=== PATIENT | female | born 1950 | race Caucasian/White ===

== ENCOUNTER 2020-02-02 11:37 | Outpatient (CLI) | payer MEDICARE, OTHER, SELFPAY ==
--- NOTE | 2020-02-02 11:46 | USCV_ITS ---
Lise Coyne Age: 69 Gender: F : 1950 Exam Date: 02/02/2020 12:16 Ordering Phys: Mita Hartley NP Technologist: Rian Draper Exam Location: [facility] – [place] Indication: RT LEG PAIN HISTORY: Lower extremity pain. PROCEDURES: Venous duplex imaging was performed in only the right lower extremity. The following venous structures were evaluated: common femoral vein, profunda vein, proximal portion of the greater saphenous vein, superficial femoral vein, and the popliteal vein. In addition, the posterior tibial and peroneal trunk were evaluated. On the right side, the common femoral, superficial femoral, profunda femoral, popliteal, posterior tibial, greater saphenous veins and the peroneal trunk were identified and interrogated in the standard fashion. These veins were found to be easily compressible with spontaneous blood flow. No evidence of insufficiency or thrombus noted. FINDINGS: Normal 2-D Doppler and augmentation and compressibility throughout the lower extremity venous structures. Additional imaging through the proximal calf veins also reveals no thrombus. Limited evaluation of the greater saphenous vein is patent with no thrombus.. CONCLUSIONS No evidence of right lower extremity DVT. Stefano Cardenas MD (Electronically Signed) Final Date: 02 February 2020 17:26 S
== END 2020-02-02 11:38 | disposition home or self-care (01) ==
LOC: RAD 11:43
PROVIDERS: PCP Nurse Practitioner Family; Visit Provider Nurse Practitioner Family
DX: M79.604 Pain in right leg (principal)
CPT/HCPCS: 93971

== ENCOUNTER 2021-02-08 08:29 | Outpatient (CLI) | payer MEDICARE, OTHER, SELFPAY ==
--- NOTE | 2021-02-08 09:19 | XR_ITS ---
WS: [id number] CERVICAL SPINE TECHNIQUE: 3 views of the cervical spine CLINICAL INFORMATION: NECK PAIN COMPARISON: None. FINDINGS: Straightening of the normal cervical lordosis. Mild spondylitic changes. Slight anterolisthesis C4 on C5 measuring 2 mm. This increases on flexion to 3 mm and decreases on extension to near neutral. Nor mal dens. Disc space narrowing worse at C5-C6. Normal C1-C2 articulation. Moderate facet arthropathy mid cervical spine. Sternotomy. Normal prevertebral soft tissues. XR/XR cervical spine 4-5V [id number] IMPRESSION: 1. Straightening of the normal cervical lordosis with mild spondylitic changes . 2. Mild instability at C4-5 described above. 3. Disc space narrowing worse at C5-6.
== END 2021-02-08 08:30 | disposition home or self-care (01) ==
PROVIDERS: PCP Nurse Practitioner Family; Visit Provider Nurse Practitioner Family
DX: M53.2X2 Spinal instabilities, cervical region (principal)
CPT/HCPCS: 72050

== ENCOUNTER 2022-07-23 16:30 | Observation (INO) | payer MEDICARE, SELFPAY ==
--- NOTE | 2022-07-23 16:38 | W.ED.ABDPA2 ---
HPI - Abdominal Pain General: Chief Complaint: Abdominal Pain Stated Complaint: possible hernia in stomach Time Seen by Provider: 07/23/22 16:32 History of Present Illness: Ms. Coyne is a 72-year-old lady with hypertension, history of ascending aorta repair valve replacement, and history of blood cancer remotely presenting to the emergency department for abdominal pain. She reports subacute onset approximately 3 weeks ago without known specific provoking event or factors. She endorses epigastric abdominal pain without significant radiation which has been near constant and is exacerbated by eating. She has had nausea but no vomiting. Does report some constipation however had bowel movement yesterday. Intensity symptoms is moderate to severe. Course has persisted. No other specific changes in health, exacerbating, or alleviating factors identified. Onset (ago): week(s) Pain Consistency: constant Location: Epigastric Severity: moderate Quality: aching and other Radiation: none Migration to: no migration Exacerbating factors: eating Relieving factors: nothing Associated Symptoms: Reports anorexia, constipation and nausea; Denies dysuria, hematochezia, hematemesis, melena and vomiting Review of Systems General: Reports: 10 or more systems reviewed and unremarkable except in HPI and below GI: Reports: nausea and constipation; Denies: vomiting, hematemesis, hematochezia or melena : Denies: dysuria PFSH ED PFSH: Medical History (Updated 07/26/22 @ 00:01 by [facility] Mcduffie) Cardiac chest pain Essential hypertension History of lymphoma Surgical History History of AAA (abdominal aortic aneurysm) repair Family History Father CAD (coronary artery disease) Social History Smoking and tobacco status: never smoked Alcohol intake: never Household members: spouse Physical Exam Const: COMMON NORMALS: alert GENERAL APPEARANCE: cooperative and well developed HENMT: COMMON NORMALS: normocephalic and atraumatic HEAD & SCALP: normocephalic and atraumatic Eye: COMMON NORMALS: conjunctivae normal CONJUNCTIVA: Yes conjunctivae normal SCLERA: sclerae normal Neck/C-Spine: COMMON NORMALS: supple GENERAL: Yes trachea midline Resp: COMMON NORMALS: clear to auscultation bilaterally EFFORT & INSPECTION: Yes able to speak in complete sentences AUSCULTATION: clear to auscultation bilaterally Cardio: COMMON NORMALS: regular rate and regular rhythm RATE: regular rate RHYTHM: regular rhythm GI: COMMON NORMALS: Soft to palpation PALPATION: Yes Soft to palpation, Yes Tenderness to palpation present (GI) (Epigastric), No Guarding due to palpation present (GI) and No Rigid due to palpation PERCUSSION: normal to percussion Extremity: GENERAL: Yes normal exam except as noted and No edema Neuro: COMMON NORMALS: moves all extremities SENSORIUM/ORIENTATION: Yes alert and No Orientation impaired Psych: COMMON NORMALS: mental status grossly normal and Normal thought process present THOUGHT PROCESS: Normal thought process present Course Vital Signs: Vital signs: Vital Signs Temperature 97.4 F L 07/25/22 16:00 Pulse Rate 72 07/25/22 16:00 Respiratory Rate 18 07/25/22 16:00 Blood Pressure 141/60 07/25/22 16:00 Pulse Oximetry 94 07/25/22 16:00 Oxygen Delivery Me thod 07/25/22 16:00 Oxygen Flow Rate 2 07/25/22 10:56 MDM - Abdominal Pain Medical Decision Making 72-year-old lady presenting with generalized illness including abdominal pain. Exam as above without evidence of acute surgical abdomen. EKG notable for sinus rhythm, normal intervals, normal axis, no STEMI. Labs notable for no leukocytosis, normal hemoglobin. Metabolic panel with elevated creatinine mildly and marked elevation of calcium as well as ionized calcium. Mild transaminitis present. Negative range 2-hour delta troponin. Negative urinalysis. On clarification of history with regards to laboratory studies patient denies frequent supplement use or calcium supplementation. She is on nifedipine and metoprolol, no thiazides. No history of similar. Reports lab work approximately [address] [facility] in [place]. Chest x-ray with no lobar consolidation or pneumothorax. CT with quite concerning findings including massive soft tissue masses in the abdomen/retroperitoneal region as well as multiple organ involvement. Most likely recurrence of patient's lymphoma. I discussed these results extensively with the patient. Most likely etiology of patient's symptoms is hypercalcemia secondary to malignancy. Given degree of hypercalcemia inpatient management is reasonable. I did discuss that this likely would not lead to inpatient evaluation of patient's cancer. Patient treated with analgesia, antiemetic, IV fluids. The results of ED evaluation were discussed with the patient including plan for admission due to requirement for level of care not available if discharged to prevent significant worsening/deterioration. Patient agreeable with plan. Discussed with hospitalist service who was agreeable to admit patient. Medical Records I reviewed the patient's medical records. Lab Data I reviewed the patient's lab results. 07/23/22 17:21 07/23/22 17:21 Labs/Radiology: Radiology Impressions Chest X-Ray 07/23/22 16:54 IMPRESSION: No acute findings. Abdomen/Pelvis CT 07/23/22 17:37 IMPRESSION: 1. Massive soft tissue masses centered in the left retroperitoneal region and left external iliac region with central necrosis consistent with recurrence or progression of patient's known lymphoma. Retroperitoneal/periaortic, perigastric, and colleen hepatic lymphadenopathy is also noted. 2. Several additional liver and splenic masses which are new from most recent comparison consistent with additional areas of lymphomatous involvement. 3. Mild left-sided pelvocaliectasis, without clear encasement or obstruction of the traversing left ureter, but there is displacement and abutment from the tumors. COMMENTS: Consistent with the [employer]'s Incidental Findings Committee white paper (J Am Nasreen Radiol 2018): Any incidental renal lesion less than 1 cm or classified as too small to characterize, or any incidental cystic renal lesion characterized as simple-appearing, is likely benign. No follow-up imaging is recommended for these lesions per consensus recommendations based on imaging criteria. Biopsy Ultrasound 07/25/22 00:00 IMPRESSION: Uncomplicated ultrasound-guided pelvic mass biopsy. Laboratory Results WBC 5.3 10^3/uL (4.0-10.0) 07/23/22 17:21 RBC 4.04 10^6/uL (4.1-5.3) L 07/23/22 17:21 Hgb 12.2 g/dL (11.5-15.3) 07/23/22 17: Hct 37.9 % (37.0-47.0) 07/23/22 17:21 MCV 93.8 fl (81-99) 07/23/22 17: MCH 30.2 pg (28.0-34.0) 07/23/22 17: MCHC 32.2 g/dL (30.0-36.0) 07/23/22 17:21 RDW 13.6 % (12.1-15.1) 07/23/22 17:21 Plt Count 266 10^3/cmm (130-400) 07/23/22 17:21 MPV 11.9 fL (7.4-10.4) H 07/23/22 17:21 Neut % (Auto) 65.5 % 07/23/22 17:21 Lymph % (Auto) 13.7 % 07/23/22 17:21 [place] % (Auto) 18.2 % 07/23/22 17:21 Eos % (Auto) 1.1 % 07/23/22 17:21 Baso % (Auto) 1.3 % 07/23/22 17:21 Neut # (Auto) 3.49 10^3/uL (1.8-7.7) 07/23/22 17:21 Lymph # (Auto) 0.7 10^3/uL (0.8-4.8) L 07/23/22 17:21 [place] # (Auto) 1.0 10^3/uL (0.2-0.9) H 07/23/22 17:21 Eos # (Auto) 0.1 10^3/uL (0.0-0.8) 07/23/22 17:21 Baso # (Auto) 0.1 10^3/uL (0.0-0.1) 07/23/22 17:21 Nucleated RBC % (auto) 0 % 07/23/22 17:21 Nucleated RBCs # 0.0 /100WBC 07/23/22 17:21 Sodium 138 mmol/L (136-145) 07/23/22 17:21 Potassium 3.9 mmol/L (3.5-5.1) 07/23/22 17:21 Chloride 98 mmol/L (98-107) 07/23/22 17:21 Carbon Dioxide 30 mmol/L (22-29) H 07/23/22 17:21 Anion Gap 13.9 (5-19) 07/23/22 17:21 BUN 22 mg/dL (8-23) 07/23/22 17:21 Creatinine 1.3 mg/dL (0.5-0.9) H 07/23/22 17:21 GFR Calculation Not Reportable 07/23/22 17:21 Glucose 104 mg/dL (65-115) 07/23/22 17:21 Calculated Osmolality 290 mOsm/kg (285-295) 07/23/22 17:21 Lactate 1.4 mmol/L (0.5-2.2) 07/23/22 17:30 Calcium 13.9 mg/dL (8.5-10.5) H* 07/23/22 17:21 Ionized Calcium Rosalie 1.7 mmol/L (1.1-1.4) H 07/23/22 18:12 Phosphorus 3.4 mg/dL (2.5-4.5) 07/23/22 17:21 Magnesium 2.0 mg/dL (1.7-2.3) 07/23/22 17:21 Total Bilirubin 0.6 mg/dL (0.15-1.2) 07/23/22 17:21 AST 49 U/L (0-32) H 07/23/22 17:21 ALT 26 U/L (0-33) 07/23/22 17:21 Alkaline Phosphatase 107 U/L (35-105) H 07/23/22 17:21 Troponin T Baseline 18 ng/L (0-10) H 07/23/22 17:21 Troponin T 120 Minute 17.54 ng/L (0-10) H 07/23/22 19:24 Delta Troponin T -0.46 ABS# (0-10) L 07/23/22 19:24 Total Protein 6.6 g/dL (6.6-8.7) 07/23/22 17:21 Albumin 4.2 g/dL (3.5-5.2) 07/23/22 17:21 Globulin 2.4 g/dL (1.3-4.6) 07/23/22 17:21 Lipase 48 U/L (13-60) 07/23/22 17:21 Vitamin B12 1040 pg/mL (232-1245) 07/23/22 19:24 25-OH Vitamin D Total 19 ng/mL (30-100) L 07/23/22 17:10 Procalcitonin 0.15 ng/mL (0-0.5) 07/23/22 17:10 TSH 3.17 uIU/mL (0.27-4.20) 07/23/22 19:24 PTH Intact 7.1 pg/mL (15-65) L 07/23/22 17:10 Calcium (PTH Intact) 14.1 mg/dL (8.5-10.5) H* 07/23/22 17:10 Urine Color Yellow (Yellow) 07/23/22 17:48 Urine Appearance Clear (CLEAR) 07/23/22 17:48 Urine pH 6 (5-7) 07/23/22 17:48 Ur Specific [place] 1.025 (1.005-1.030) 07/23/22 17:48 Urine Protein Neg (Negative) 07/23/22 17:48 Urine Glucose (UA) Norm (Normal) 07/23/22 17:48 Urine Ketones Negative (Negative) 07/23/22 17:48 Urine Blood Neg (Negative) 07/23/22 17:48 Urine Nitrate Negative (Negative) 07/23/22 17:48 Urine Bilirubin Neg (Negative) 07/23/22 17:48 Urine Urobilinogen Neg mg/dL (Negative) 07/23/22 17:48 Ur Leukocyte Esterase Negative (Negative) 07/23/22 17:48 Discharge Plan Discharge Patient Disposition: Admitted As Inpatient Admit Provider: Snehal Traylor Clinical Impression: JAKE (acute kidney injury), Dehydration, Hypercalcemia, Intraabdominal mass Condition: Stable Discharge Diet: As Directed Discharge Activity: Resume usual activity Coding Level of Care Code ED Dental Laboratory Technician for Octavianog Matt
[2022-07-23 16:42] VITALS: BP 147/66; PULSE 94; RESP 16; TEMP 37.2; O2SAT 93
--- NOTE | 2022-07-23 16:54 | XRR_ITS ---
PROCEDURE INFORMATION: Exam: XR Chest Exam date and time: 07/23/2022 5:23 PM Age: 72 years old Clinical indication: Other: Epigastric pain; Additional info: Epigastric/chest pain TECHNIQUE: Imaging protocol: Radiologic exam of the chest. Views: 1 view. COMPARISON: CR XR chest 1V [id number] 04/22/2017 6:50 AM FINDINGS: Lungs: No consolidation. Pleural spaces: No pleural effusion. No pneumothorax. Heart/Mediastinum: No cardiomegaly. Bones/joints: Sternotomy wires noted. Visualized osseous structures are intact. XR/XR chest 1V portable [id number] IMPRESSION: No acute findings.
--- NOTE | 2022-07-23 17:06 | ECG_ITS ---
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 Measurements Intervals [place] Rate: 77 P: 67 ND: 180 QRS: 38 QRSD: 97 T: 71 QT: 346 QTc: 392 Interpretive Statements SINUS RHYTHM Compared to ECG 12/22/2017 08:20:23 Intraventricular conduction delay no longer present Electronically Signed On 07-24-2022 1:53:57 METALSMITH APPRENTICE by Argenis Gaona M.D. [id number]
[2022-07-23] MEDS: ondansetron 2 mg/ML SDV 2 mL 4 MG IVP (17:10)
[2022-07-23 17:25] LABS: Basophils # 0.1 10^3/uL (0.0-0.1); Basophils % 1.3 %; Eosinophils # 0.1 10^3/uL (0.0-0.8); Eosinophils % 1.1 %; Hematocrit 37.9 % (37.0-47.0); Hemoglobin 12.2 g/dL (11.5-15.3); Lymphocytes # 0.7 10^3/uL (0.8-4.8); Lymphocytes % 13.7 %; Mean Corpuscular HGB Conc 32.2 g/dL (30.0-36.0); Mean Corpuscular Hemoglobin 30.2 pg (28.0-34.0); Mean Corpuscular Volume 93.8 fl (81-99); Mean Platelet Volume 11.9 fL (7.4-10.4); Monocytes % 18.2 %; Neutrophils # 3.49 10^3/uL (1.8-7.7); Neutrophils % 65.5 %; Nucleated Red Blood Cells % 0 %; Platelet Count 266 10^3/cmm (130-400); Red Blood Count 4.04 10^6/uL (4.1-5.3); Red Cell Distribution Width 13.6 % (12.1-15.1); White Blood Count 5.3 10^3/uL (4.0-10.0)
--- NOTE | 2022-07-23 17:37 | CTR_ITS ---
PROCEDURE INFORMATION: Exam: CT Abdomen And Pelvis With Contrast Exam date and time: 07/23/2022 6:35 PM Age: 72 years old Clinical indication: Abdominal pain; Prior surgery; Surgery date: 6+ months; Surgery type: Bilateral hips, taa repair, hyst; Additional info: Epigastric pain, persistent, history of lymphoma TECHNIQUE: Imaging protocol: Computed tomography of the abdomen and pelvis with contrast. Radiation optimization: All CT scans at this facility use at least one of these dose optimization techniques: automated exposure control; mA and/or kV adjustment per patient size (includes targeted exams where dose is matched to clinical indication); or iterative reconstruction. Contrast material: OMNIPAQUE 350; Contrast volume: 95 ml; Contrast route: INTRAVENOUS (IV); Other protocol: This patient has received 0 known CTs and 0 known cardiac nuclear medicine studies in the 12 months prior to the current study. COMPARISON: CT abdomen pelvis w con* [id number] 04/22/2017 10:03 AM RADIATION DOSE METRICS: Total DLP (mGy-cm): 397.43 FINDINGS: Liver: Multiple hypoattenuating masses are noted within both hepatic lobes the largest measuring 2.7 cm along the posterior/inferior right hepatic lobe. The masses are new from most recent comparison study. Gallbladder and bile ducts: Normal. No calcified stones. No ductal dilation. Pancreas: Normal. No ductal dilation. Spleen: Multiple hypoattenuating splenic masses noted measuring up to 4.2 cm in size. These are new from most recent comparison study. Adrenal glands: Normal. No mass. Kidneys and ureters: 1.7 cm exophytic cyst noted in the upper pole of the right kidney. Mild left-sided pelvocaliectasis. There is no apparent encasement or obstruction of the traversing left ureter, but there is displacement and abutment from the tumors. Stomach and bowel: Unremarkable. No obstruction. No mucosal thickening. Appendix: No evidence of appendicitis. Intraperitoneal space: Unremarkable. No free air. No significant fluid collection. Vasculature: Please see lymph nodes section. Lymph nodes: Massive lobulated soft tissue mass with central hypoattenuation noted in the area of left external iliac adenopathy on prior study. The mass now measures 7.5 x 9.1 cm. The mass encases the left external iliac artery and vein. There is also a left retroperitoneal mass also a central hypoattenuation which encompasses the left common iliac artery and abuts the distal abdominal aorta. Multiple additional irregular retroperitoneal/periaortic lymphadenopathy noted as well as perigastric and colleen hepatic lymph nodes. Urinary bladder: Unremarkable as visualized. Reproductive: Hysterectomy. Bones/joints: Generalized osseous demineralization. No acute fracture. No aggressive osseous lesions. Bilateral total hip arthroplasties noted in expected alignment. Soft tissues: Unremarkable. CT/CT abdomen pelvis w con* [id number] IMPRESSION: 1. Massive soft tissue masses centered in the left retroperitoneal region and left external iliac region with central necrosis consistent with recurrence or progression of patient's known lymphoma. Retroperitoneal/periaortic, perigastric, and colleen hepatic lymphadenopathy is also noted. 2. Several additional liver and splenic masses which are new from most recent comparison consistent with additional areas of lymphomatous involvement. 3. Mild left-sided pelvocaliectasis, without clear encasement or obstruction of the traversing left ureter, but there is displacement and abutment from the tumors. COMMENTS: Consistent with the [employer]'s Incidental Findings Committee white paper (J Am Nasreen Radiol 2018): Any incidental renal lesion less than 1 cm or classified as too small to characterize, or any incidental cystic renal lesion characterized as simple-appearing, is likely benign. No follow-up imaging is recommended for these lesions per consensus recommendations based on imaging criteria.
[2022-07-23 17:44] LABS: Troponin(5th) Baseline 18 ng/L (0-10)
[2022-07-23 17:46] LABS: Alanine Aminotransferase 26 U/L (0-33); Albumin Level 4.2 g/dL (3.5-5.2); Alkaline Phosphatase 107 U/L (35-105); Aspartate Amino Transferase 49 U/L (0-32); Blood Urea Nitrogen 22 mg/dL (8-23); Carbon Dioxide 30 mmol/L (22-29); Chloride 98 mmol/L (98-107); Globulin 2.4 g/dL (1.3-4.6); Glucose 104 mg/dL (65-115); Lipase 48 U/L (13-60); Total Bilirubin 0.6 mg/dL (0.15-1.2); Total Protein 6.6 g/dL (6.6-8.7)
[2022-07-23 17:48] LABS: Calcium 13.9 mg/dL (8.5-10.5)
[2022-07-23 18:00] VITALS: PULSE 75; RESP 14; O2SAT 95
[2022-07-23 18:01] LABS: Add Urine Microscopic? NO; Charge for UA Resulting for Rev
[2022-07-23 18:08] LABS: Lactate (Lactic Acid level) 1.4 mmol/L (0.5-2.2)
[2022-07-23 18:09] LABS: Bilirubin Urine Neg (Negative); Blood Urine Neg (Negative); Glucose Urine UA Norm (Normal); Ketones Urine Negative (Negative); Leukocyte Esterase Urine Negative (Negative); Nitrate Urine Negative (Negative); Protein Urine Neg (Negative); Specific Gravity, Urine 1.025 (1.005-1.030); Urine Appearance Clear (CLEAR); Urine Color Yellow (Yellow); Urobilinogen Urine Neg (Negative); pH Urine 6 (5-7)
[2022-07-23] MEDS: sodium chloride 0.9% 1,000 ML 999 ML IV (18:10)
[2022-07-23 18:17] LABS: Ionized Calcium 1.7 mmol/L (1.1-1.4)
[2022-07-23 18:21] LABS: Phosphorus 3.4 mg/dL (2.5-4.5)
[2022-07-23 18:22] LABS: Anion Gap 13.9 (5-19); Osmolality Calculated 290 mOsm/kg (285-295); Potassium 3.9 mmol/L (3.5-5.1); Sodium 138 mmol/L (136-145)
[2022-07-23] MEDS: iohexol 350 mg/mL 500 mL Btl (per mL) IV (18:38)
[2022-07-23 19:00] VITALS: BP 150/55; PULSE 73; RESP 16; O2SAT 96
--- NOTE | 2022-07-23 19:10 | ECG_ITS ---
[facility] Test Date: 2022-07-23 Pat Name: Lise Coyne Department: Room: Gender: Female Carpet Layer Helper: : 1950 Requested By: Renzo Kaur Order Number: [id number] Alejandro MD: Argenis Gaona M.D. Measurements Intervals [place] Rate: 74 P: 62 CT: 194 QRS: 41 QRSD: 104 T: 61 QT: 371 QTc: 412 Interpretive Statements SINUS RHYTHM Compared to ECG 07/23/2022 17:06:49 No significant changes Electronically Signed On 07-24-2022 1:58:06 MARKETING AND DEVELOPMENT COORDINATOR by Argenis Gaona M.D. [id number]
--- NOTE | 2022-07-23 19:34 | PM.HP ---
Providers/Chief Complaint Primary Care Provider: Melvi Castro NP Chief Complaint: possible hernia in stomach History of Present Illness Lise Coyne is a 72 year old female with history of lymphoma in the remote past presented with chief complaint of epigastric pain. Patient is stating that for last 2 to 3 weeks she has been experiencing mid epigastric pain especially after eating, she is trying to avoid eating too much in order to abstain from going to the bathroom frequently and recurrence of epigastric pain. She has not noticed any vomiting, diarrhea. She is endorsing constipation. No signs of confusion. No recent chest pain, shortness of breath or vomiting. No fever. Her oncologist is in [place] she considered herself sedentary. History of thoracic AAA repair. In the ER she has been diagnosed with hypercalcemia, she is wanting to follow-up with her oncologist, willing to stay for IV hydration All questions were answered at the time of my elevation, family was at the bedside She is endorsing weight loss, denies night sweats, Review of Systems Const: Reports: chills, body aches, change in appetite and malaise; Denies: fever(s) Eyes: Denies: change in vision ENMT: Denies: throat pain Card: Denies: chest pain Resp: Denies: dyspnea GI: Reports: nausea and GI cramping : Denies: flank pain Musc: Denies: neck pain Skin/Breast: Denies: rash Neuro: Denies: headache(s) Psych: Denies: anxiety Endo: Denies: polyuria Krystian/Lymph: Denies: easy bruising All/Imm: Denies: urticaria Medications/Allergies Home Medications Medication Instructions Recorded Confirmed Last Taken Type amlodipine 5 mg tablet 5 mg PO BID 07/01/19 07/01/19 Unknown History aspirin 81 mg tablet,delayed 81 mg PO DAILY 07/01/19 07/01/19 Unknown History release (Adult Aspirin Regimen) metoprolol tartrate 25 mg tablet 25 mg PO BID 07/01/19 07/01/19 Unknown History pravastatin 80 mg tablet 80 mg PO DAILY 07/01/19 07/01/19 Unknown History Allergies Allergy/AdvReac Type Severity Reaction Status Date / Time No Known Allergies Allergy Unverified 07/01/19 09:17 PFSH Acute PFSH: Medical History (Updated 07/23/22 @ 19:57 by Renzo Kaur MD) Cardiac chest pain Essential hypertension History of lymphoma Surgical History History of AAA (abdominal aortic aneurysm) repair Family History Father CAD (coronary artery disease) Social History Smoking and tobacco status: never smoked Alcohol intake: never Household members: spouse Vitals/I&O/Wt Last Vital Signs Temp 98.9 F 07/23/22 16:42 Pulse 73 07/23/22 19:00 Resp 16 07/23/22 19:00 BP 150/55 07/23/22 19:00 Pulse Ox 96 07/23/22 19:00 O2 Del Method 07/23/22 19:00 Weight last 48 hrs Weight 56.245 kg Physical Exam Narrative: Pleasant cooperative female Looks dehydrated Soft abdomen S1, S2 Currently doing well on room air Pleasant and cooperative Family at the bedside Nonfocal neuro exam Doing well on room air No audible stridor or wheezing Data 07/23/22 17:21 07/23/22 17:21 Other data: 1. Massive soft tissue masses centered in the left retroperitoneal region and left external iliac region with central necrosis consistent with recurrence or progression of patient's known lymphoma. Retroperitoneal/periaortic, perigastric, and colleen hepatic lymphadenopathy is also noted. 2. Several additional liver and splenic masses which are new from most recent comparison consistent with additional areas of lymphomatous involvement. 3. Mild left-sided pelvocaliectasis, without clear encasement or obstruction of the traversing left ureter, but there is displacement and abutment from the tumors. A&P Assessment and plan (1) Dehydration: (2) JAKE (acute kidney injury): (3) Hypercalcemia: (4) Intraabdominal mass: (5) Essential hypertension: (6) History of AAA (abdominal aortic aneurysm) repair: Plan Hypercalcemia History of lymphoma Multiple masses intra-abdominal, splenomegaly, concern related to recurrent lymphoma, patient wants to follow-up with her oncologist in [place] Hypercalcemia symptoms epigastric pain, constipation, For now I will check PTH, vitamin D, start her on IV fluids Will give her calcitonin She is experiencing epigastric pain, poor appetite, weight loss If her hypercalcemia does not improve with IV fluid hydration this most likely lymphoma related, Most likely she will be able to go home by tomorrow if calcium is better She will need outpatient oncology follow-up Will request records from Keisha Mccollum Patient was counseled along with her family members regarding signs of hypercalcemia She is not anemic JAKE related to dehydration anticipating provement with IV fluid hydration Patient is full code Regular diet DVT prophylaxis on board Attestations Medical Necessity Statement*: Anticipating discharge within 48 hours Time Spent in Patient Care: 40 Coding Level of Care Code Acute Code for Chg Fwd Diagnoses Dehydration E86.0 JAKE (acute kidney injury) N17.9 Hypercalcemia E83.52 Intraabdominal mass R19.00 Essential hypertension I10 History of AAA (abdominal aortic aneurysm) repair Z98.890
[2022-07-23 19:49] LABS: LAB Peripheral Smear Sent for Review
[2022-07-23 19:56] LABS: Troponin 5 2HR 17.54 ng/L (0-10); Troponin 5 2HR Delta -0.46 ABS# (0-10)
[2022-07-23 21:45] LABS: Parathyroid Hormone 7.1 pg/mL (15-65)
[2022-07-23 21:53] LABS: 25 Hydroxy Vitamin D 19 ng/mL (30-100); Procalcitonin 0.15 ng/mL (0-0.5)
[2022-07-23 22:08] LABS: Thyroid Stimulating Hormone 3.17 uIU/mL (0.27-4.20); Vitamin B12 1040 pg/mL (232-1245)
[2022-07-23 22:23] LABS: Calcium 14.1 mg/dL (8.5-10.5)
[2022-07-23] MEDS: enoxaparin 40 mg/0.4 mL Syringe SUBCUT (22:49)
[2022-07-23] MEDS: calcitonin,salmon 200 unit/mL SDV 2mL 100 UNIT SUBCUT (22:49)
[2022-07-23] MEDS: sodium chloride 0.9% 1,000 ML 75 ML IV (22:50)
[2022-07-24] VITALS (9 sets, daily range): BP systolic 121–163; BP diastolic 50–70; PULSE 66–83; RESP 15–17; TEMP 36.4–36.9; O2SAT 93–97
[2022-07-24 04:34] LABS: Basophils # 0.1 10^3/uL (0.0-0.1); Basophils % 1.2 %; Eosinophils % 0.4 %; Hematocrit 33.2 % (37.0-47.0); Hemoglobin 10.9 g/dL (11.5-15.3); Lymphocytes # 0.4 10^3/uL (0.8-4.8); Lymphocytes % 8.4 %; Mean Corpuscular HGB Conc 32.8 g/dL (30.0-36.0); Mean Corpuscular Hemoglobin 30.6 pg (28.0-34.0); Mean Corpuscular Volume 93.3 fl (81-99); Monocytes # 0.7 10^3/uL (0.2-0.9); Monocytes % 14.2 %; Neutrophils # 3.88 10^3/uL (1.8-7.7); Neutrophils % 75.6 %; Nucleated Red Blood Cells % 0 %; Platelet Count 225 10^3/cmm (130-400); Red Blood Count 3.56 10^6/uL (4.1-5.3); Red Cell Distribution Width 13.5 % (12.1-15.1); White Blood Count 5.1 10^3/uL (4.0-10.0)
[2022-07-24 04:52] LABS: Alanine Aminotransferase 23 U/L (0-33); Albumin Level 3.7 g/dL (3.5-5.2); Alkaline Phosphatase 89 U/L (35-105); Anion Gap 12.7 (5-19); Aspartate Amino Transferase 45 U/L (0-32); Blood Urea Nitrogen 17 mg/dL (8-23); C Reactive Protein 3.6 mg/L (0.0-4.9); Calcium 11.7 mg/dL (8.5-10.5); Carbon Dioxide 26 mmol/L (22-29); Chloride 104 mmol/L (98-107); Globulin 2.1 g/dL (1.3-4.6); Glucose 139 mg/dL (65-115); Magnesium 1.8 mg/dL (1.7-2.3); Osmolality Calculated 292 mOsm/kg (285-295); Potassium 3.7 mmol/L (3.5-5.1); Sodium 139 mmol/L (136-145); Total Bilirubin 0.5 mg/dL (0.15-1.2); Total Protein 5.8 g/dL (6.6-8.7)
[2022-07-24] MEDS: metoprolol tartrate 25 mg Tablet PO ×2 (09:22→17:41)
[2022-07-24] MEDS: pantoprazole 40 mg SDV IVP ×2 (09:23→17:36)
[2022-07-24] MEDS: sodium chloride 0.9% 1,000 ML 75 ML IV (13:10)
[2022-07-24 13:22] LABS: Calcium 11.7 mg/dL (8.5-10.5)
--- NOTE | 2022-07-24 13:36 | P.PN_ITS ---
Subjective Subjective: This morning. She states her abdominal pain is better but still present. She would like to get biopsy of her masses done during hospital stay. Calcium is still high at 11.1. Zoledronic acid is not available in the hospital. Will be available tomorrow morning. Vitals/I&O/Wt Last Vital Signs Temp 97.8 F 07/24/22 12:00 Pulse 66 07/24/22 12:00 Resp 17 07/24/22 12:00 BP 156/70 07/24/22 12:00 Pulse Ox 97 07/24/22 12:00 O2 Del Method 07/24/22 08:48 07/23/22 07/24/22 07/24/22 22:59 06:59 14:59 Intake Total 1230 / 1230 Balance 1230 / 1230 Weight last 48 hrs Weight 56.245 kg Physical Exam Narrative: Pleasant cooperative female Soft abdomen S1, S2 Currently doing well on room air Pleasant and cooperative Family at the bedside Nonfocal neuro exam Doing well on room air No audible stridor or wheezing Data 07/24/22 04:26 07/24/22 04:26 A&P Assessment and plan (1) Dehydration: (2) JAKE (acute kidney injury): (3) Hypercalcemia: (4) Intraabdominal mass: (5) Essential hypertension: (6) History of AAA (abdominal aortic aneurysm) repair: Plan Hypercalcemia History of lymphoma Hypertension Multiple masses intra-abdominal, splenomegaly, 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 Calcium 14.1 on admission. Repeat calcium this a.m. 11.1. Continue IV fluids for now Order zoledronic acid 4 mg IV x1 dose. It is not available today but will be available in the morning. We will order that for her tomorrow. She did receive 1 dose of calcitonin at admission. Recheck calcium. May have to repeat another dose of calcitonin. Will give her calcitonin She is experiencing epigastric pain, poor appetite, weight loss This is most likely hypercalcemia of malignancy She follows up at [facility] oncology. She would like to have biopsy done here and then follow-up with them as an outpatient. N.p.o. at midnight today. Biopsy of pelvic mass in a.m. Hopefully calcium is better and then she can be discharged home. I have asked her to stop taking any calcium supplements if she is on any. Patient was counseled along with her family members regarding signs of hypercalcemia She is not anemic JAKE related to dehydration anticipating provement with IV fluid hydration Patient is full code Regular diet DVT prophylaxis on board. Hold DVT prophylaxis tonight for biopsy in a.m. Hold aspirin as well. Attestations Medical Necessity Statement*: Patient is still hypercalcemic. Calcium is 11.1 this AM. She will require a biopsy prior to discharge. Most likely plan for discharge in a.m. as long as calcium gets better. Coding Level of Care Code Acute Code for Chg Fwd History Expanded Problem Focused Exam Problem Focused Medical Decision Making Low Complexity Diagnoses Dehydration E86.0 JAKE (acute kidney injury) N17.9 Hypercalcemia E83.52 Intraabdominal mass R19.00 Essential hypertension I10 History of AAA (abdominal aortic aneurysm) repair Z98.890
[2022-07-24 14:41] LABS: Alanine Aminotransferase 20 U/L (0-33); Albumin Level 3.4 g/dL (3.5-5.2); Alkaline Phosphatase 86 U/L (35-105); Anion Gap 10.8 (5-19); Aspartate Amino Transferase 37 U/L (0-32); Blood Urea Nitrogen 17 mg/dL (8-23); Calcium 11.3 mg/dL (8.5-10.5); Carbon Dioxide 25 mmol/L (22-29); Chloride 103 mmol/L (98-107); Globulin 2.2 g/dL (1.3-4.6); Glucose 111 mg/dL (65-115); Osmolality Calculated 282 mOsm/kg (285-295); Potassium 3.8 mmol/L (3.5-5.1); Sodium 135 mmol/L (136-145); Total Bilirubin 0.4 mg/dL (0.15-1.2); Total Protein 5.6 g/dL (6.6-8.7)
[2022-07-25] VITALS (16 sets, daily range): BP systolic 117–180; BP diastolic 51–68; PULSE 62–74; RESP 14–20; TEMP 36.3–36.9; O2SAT 92–99
--- NOTE | 2022-07-25 | US_ITS ---
WS: [id number] ULTRASOUND-GUIDED LEFT PELVIC MASS BIOPSY INDICATION: Pelvic mass TECHNIQUE: The procedure including risks, benefits, and complications were discussed with the patient who agreed to proceed. Using sterile technique patient was prepped and draped in usual sterile fashi on. Timeout was performed. After 1% lidocaine, using ultrasound guidance, 6 core samples were obtaine d of the LEFT lower abdominal/pelvic mass utilizing an 18-gauge Temno biopsy device. No immediate com plications. Pathology is pending. US/US biopsy muscle IMPRESSION: Uncomplicated ultrasound-guided pelvic mass biopsy.
[2022-07-25] MEDS: sodium chloride 0.9% 1,000 ML 75 ML IV (01:45)
[2022-07-25 02:26] LABS: INR 1.03 (0.8-1.2)
[2022-07-25 02:36] LABS: Alanine Aminotransferase 21 U/L (0-33); Albumin Level 3.8 g/dL (3.5-5.2); Alkaline Phosphatase 88 U/L (35-105); Anion Gap 14.2 (5-19); Aspartate Amino Transferase 42 U/L (0-32); Blood Urea Nitrogen 15 mg/dL (8-23); Calcium 11.4 mg/dL (8.5-10.5); Carbon Dioxide 23 mmol/L (22-29); Chloride 109 mmol/L (98-107); Glucose 111 mg/dL (65-115); Osmolality Calculated 296 mOsm/kg (285-295); Potassium 4.2 mmol/L (3.5-5.1); Sodium 142 mmol/L (136-145); Total Bilirubin 0.5 mg/dL (0.15-1.2); Total Protein 5.8 g/dL (6.6-8.7)
--- NOTE | 2022-07-25 08:00 | US_ITS ---
WS: [id number] ULTRASOUND-GUIDED LEFT PELVIC MASS BIOPSY INDICATION: Pelvic mass TECHNIQUE: The procedure including risks, benefits, and complications were discussed with the patient who agreed to proceed. Using sterile technique patient was prepped and draped in usual sterile fashi on. Timeout was performed. After 1% lidocaine, using ultrasound guidance, 6 core samples were obtaine d of the LEFT lower abdominal/pelvic mass utilizing an 18-gauge Temno biopsy device. No immediate com plications. Pathology is pending.
[2022-07-25] MEDS: metoprolol tartrate 25 mg Tablet PO (08:39)
[2022-07-25] MEDS: calcitonin,salmon 200 unit/mL SDV 2mL 100 UNIT SUBCUT (08:53)
[2022-07-25] MEDS: pantoprazole 40 mg SDV IVP (09:34)
[2022-07-25] MEDS: sodium chloride 0.9% 1,000 ML 30 ML IV (10:25)
[2022-07-25] MEDS: fentaNYL 50 mcg/mL INJ 2mL 25 MCG IVP ×2 (10:28→10:32)
[2022-07-25] MEDS: midazolam 1 mg/mL INJ 2 mL IVP ×2 (10:29→10:31)
--- NOTE | 2022-07-25 13:10 | PM.DCS ---
Discharge Providers Date of Admission: 07/23/22 21:17 Date of Discharge: July 25, 2022 Attending Provider at Admission: Snehal Traylor MD Attending Provider at Discharge: Grace Decker MD Primary Care Provider: Melvi Castro NP Diagnoses at Discharge Discharge Diagnosis (1) Dehydration: Status: Acute (2) JAKE (acute kidney injury): Status: Acute (3) Hypercalcemia: Status: Acute (4) Intraabdominal mass: Status: Acute (5) Essential hypertension: Status: Acute (6) History of AAA (abdominal aortic aneurysm) repair: Status: Acute Reason for Visit Reason for Visit: possible hernia in stomach Brief History: As per Dr. Traylor Lise Coyne is a 72 year old female with history of lymphoma in the remote past presented with chief complaint of epigastric pain.? Patient is stating that for last 2 to 3 weeks she has been experiencing mid epigastric pain especially after eating, she is trying to avoid eating too much in order to abstain from going to the bathroom frequently and recurrence of epigastric pain.? She has not noticed any vomiting, diarrhea.? She is endorsing constipation.? No signs of confusion.? No recent chest pain, shortness of breath or vomiting.? No fever.? Her oncologist is in [place] she considered herself sedentary.? History of thoracic AAA repair. In the ER she has been diagnosed with hypercalcemia, she is wanting to follow-up with her oncologist, willing to stay for IV hydration All questions were answered at the time of my elevation, family was at the bedside She is endorsing weight loss, denies night sweats, Hospital Course Hospital Course Admitted for abdominal pain. Found to have hypercalcemia with Calcium 14.1. PTH low 7.5. Most likely hypercalcemia of malignancy. CT abdomen pevlis showed: 1. Massive soft tissue masses centered in the left retroperitoneal region and left external iliac region with central necrosis consistent with recurrence or progression of patient's known lymphoma. Retroperitoneal/periaortic, perigastric, and colleen hepatic lymphadenopathy is also noted. 2. Several additional liver and splenic masses which are new from most recent comparison consistent with additional areas of lymphomatous involvement. 3. Mild left-sided pelvocaliectasis, without clear encasement or obstruction of the traversing left ureter, but there is displacement and abutment from the tumors. Patient was tx for hypercalcemia with IV fluids, calcitonin x2, zoledronic acid 1x dose. Repeat caclium 10.8, improved. Abdominal pain has resolved. Pt advised a low calcium diet. Prednisone 20 mg daily added for lymphoma associated hypercalcemia of malignancy. Will give her prednisone taper script till seen by PCP for further management. She would like to follow up with her oncologist in [place]. She is already an established patient there. Physical Exam Narrative: Pleasant cooperative female Soft abdomen S1, S2 Currently doing well on room air Pleasant and cooperative Family at the bedside Nonfocal neuro exam Doing well on room air No audible stridor or wheezing Discharge Data Studies Completed and Pending Completed Studies During Hospitalization Category Date Time Status CT abdomen pelvis w con* [id number] Stat Cat Scan 07/23/22 17:37 Completed XR chest 1V portable [id number] Stat Exams 07/23/22 16:54 Completed US biopsy [id number] Routine Ultrasound 07/25/22 08:00 Completed Pending at discharge Category Date Time Status CMP [Comprehensive Metabolic Panel] Q12H Lab 07/25/22 13:40 Ordered CMP [Comprehensive Metabolic Panel] Q12H Lab 07/26/22 01:40 Ordered CMP [Comprehensive Metabolic Panel] Q12H Lab 07/26/22 13:40 Ordered CMP [Comprehensive Metabolic Panel] Routine Lab 07/25/22 14:00 Ordered Cyto Order Verification Routine Lab 07/24/22 12:19 Ordered PTH Related Peptide (Protein) Routine Lab 07/23/22 21:33 Received Cytology [PTH] Routine Pth 07/24/22 12:19 Uncollected Pathology: Surgical [PTH] Routine Pth 07/25/22 10:38 Received Radiology Impressions Chest X-Ray 07/23/22 16:54 IMPRESSION: No acute findings. Abdomen/Pelvis CT 07/23/22 17:37 IMPRESSION: 1. Massive soft tissue masses centered in the left retroperitoneal region and left external iliac region with central necrosis consistent with recurrence or progression of patient's known lymphoma. Retroperitoneal/periaortic, perigastric, and colleen hepatic lymphadenopathy is also noted. 2. Several additional liver and splenic masses which are new from most recent comparison consistent with additional areas of lymphomatous involvement. 3. Mild left-sided pelvocaliectasis, without clear encasement or obstruction of the traversing left ureter, but there is displacement and abutment from the tumors. COMMENTS: Consistent with the [employer] [place] [employer]'s Incidental Findings Committee white paper (J Am Nasreen Radiol 2018): Any incidental renal lesion less than 1 cm or classified as too small to characterize, or any incidental cystic renal lesion characterized as simple-appearing, is likely benign. No follow-up imaging is recommended for these lesions per consensus recommendations based on imaging criteria. Biopsy Ultrasound 07/25/22 08:00 IMPRESSION: Uncomplicated ultrasound-guided pelvic mass biopsy. Laboratory Results WBC 5.1 10^3/uL (4.0-10.0) 07/24/22 04:26 RBC 3.56 10^6/uL (4.1-5.3) L 07/24/22 04:26 Hgb 10.9 g/dL (11.5-15.3) L 07/24/22 04:26 Hct 33.2 % (37.0-47.0) L 07/24/22 04:26 MCV 93.3 fl (81-99) 07/24/22 04:26 MCH 30.6 pg (28.0-34.0) 07/24/22 04:26 MCHC 32.8 g/dL (30.0-36.0) 07/24/22 04:26 RDW 13.5 % (12.1-15.1) 07/24/22 04:26 Plt Count 225 10^3/cmm (130-400) 07/24/22 04:26 MPV 11.0 fL (7.4-10.4) H 07/24/22 04:26 Neut % (Auto) 75.6 % 07/24/22 04:26 Lymph % (Auto) 8.4 % 07/24/22 04:26 Atkinson % (Auto) 14.2 % 07/24/22 04:26 Eos % (Auto) 0.4 % 07/24/22 04:26 Baso % (Auto) 1.2 % 07/24/22 04:26 Neut # (Auto) 3.88 10^3/uL (1.8-7.7) 07/24/22 04:26 Lymph # (Auto) 0.4 10^3/uL (0.8-4.8) L 07/24/22 04:26 Atkinson # (Auto) 0.7 10^3/uL (0.2-0.9) 07/24/22 04:26 Eos # (Auto) 0.0 10^3/uL (0.0-0.8) 07/24/22 04:26 Baso # (Auto) 0.1 10^3/uL (0.0-0.1) 07/24/22 04:26 Nucleated RBC % (auto) 0 % 07/24/22 04:26 Nucleated RBCs # 0.0 /100WBC 07/24/22 04:26 PT 13.80 SECONDS (12.1-14.9) 07/25/22 02:03 INR 1.03 (0.8-1.2) 07/25/22 02:03 Sodium 142 mmol/L (136-145) 07/25/22 02:03 Potassium 4.2 mmol/L (3.5-5.1) 07/25/22 02:03 Chloride 109 mmol/L (98-107) H 07/25/22 02:03 Carbon Dioxide 23 mmol/L (22-29) 07/25/22 02:03 Anion Gap 14.2 (5-19) 07/25/22 02:03 BUN 15 mg/dL (8-23) 07/25/22 02:03 Creatinine 1.1 mg/dL (0.5-0.9) H 07/25/22 02:03 GFR Calculation Not Reportable 07/25/22 02:03 Glucose 111 mg/dL (65-115) 07/25/22 02:03 Calculated Osmolality 296 mOsm/kg (285-295) H 07/25/22 02:03 Lactate 1.4 mmol/L (0.5-2.2) 07/23/22 17:30 Calcium 11.4 mg/dL (8.5-10.5) H 07/25/22 02:03 Ionized Calcium Rosalie 1.7 mmol/L (1.1-1.4) H 07/23/22 18:12 Phosphorus 3.4 mg/dL (2.5-4.5) 07/23/22 17:21 Magnesium 1.8 mg/dL (1.7-2.3) 07/24/22 04:26 Total Bilirubin 0.5 mg/dL (0.15-1.2) 07/25/22 02:03 AST 42 U/L (0-32) H 07/25/22 02:03 ALT 21 U/L (0-33) 07/25/22 02:03 Alkaline Phosphatase 88 U/L (35-105) 07/25/22 02:03 Troponin T Baseline 18 ng/L (0-10) H 07/23/22 17:21 Troponin T 120 Minute 17.54 ng/L (0-10) H 07/23/22 19:24 Delta Troponin T -0.46 ABS# (0-10) L 07/23/22 19:24 C-Reactive Protein 3.6 mg/L (0.0-4.9) 07/24/22 04:26 Total Protein 5.8 g/dL (6.6-8.7) L 07/25/22 02:03 Albumin 3.8 g/dL (3.5-5.2) 07/25/22 02:03 Globulin 2.0 g/dL (1.3-4.6) 07/25/22 02:03 Lipase 48 U/L (13-60) 07/23/22 17:21 Vitamin B12 1040 pg/mL (232-1245) 07/23/22 19:24 25-OH Vitamin D Total 19 ng/mL (30-100) L 07/23/22 17:10 Procalcitonin 0.15 ng/mL (0-0.5) 07/23/22 17:10 TSH 3.17 uIU/mL (0.27-4.20) 07/23/22 19:24 PTH Intact 7.1 pg/mL (15-65) L 07/23/22 17:10 Calcium (PTH Intact) 14.1 mg/dL (8.5-10.5) H* 07/23/22 17:10 Urine Color Yellow (Yellow) 07/23/22 17:48 Urine Appearance Clear (CLEAR) 07/23/22 17:48 Urine pH 6 (5-7) 07/23/22 17:48 Ur Specific Ledger 1.025 (1.005-1.030) 07/23/22 17:48 Urine Protein Neg (Negative) 07/23/22 17:48 Urine Glucose (UA) Norm (Normal) 07/23/22 17:48 Urine Ketones Negative (Negative) 07/23/22 17:48 Urine Blood Neg (Negative) 07/23/22 17:48 Urine Nitrate Negative (Negative) 07/23/22 17:48 Urine Bilirubin Neg (Negative) 07/23/22 17:48 Urine Urobilinogen Neg mg/dL (Negative) 07/23/22 17:48 Ur Leukocyte Esterase Negative (Negative) 07/23/22 17:48 Vitals Last Vital Signs Temp 97.6 F 07/25/22 12:00 Pulse 64 07/25/22 12:00 Resp 16 07/25/22 12:00 BP 162/57 07/25/22 12:00 Pulse Ox 96 07/25/22 12:00 O2 Del Method 07/25/22 12:00 O2 Flow Rate 2 07/25/22 10:56 Discharge Plan Discharge Patient Disposition: Home Condition: Stable Prescriptions: New prednisone 10 mg tablet 10 mg PO DIRECTED Qty: 30 0RF Rx Instructions: 40 mg x3d 30 mg x3d 20 mg x3d 10 mg x3d Continued pravastatin 80 mg tablet 80 mg PO DAILY nifedipine 30 mg tablet extended release 24hr 30 mg PO DAILY metoprolol succinate 25 mg tablet extended release 24 hr 25 mg PO DAILY Discharge Orders: Discharge Order (Routine); Ordered 07/25/22 Ordered By: Grace Decker Other Ambulatory Orders: Comprehensive Metabolic Panel (Routine) Timeframe: 4 Days Facility: [facility] - Location: Lab - Main Lab Ordered By: Grace Decker Discharge Diet: As Directed Discharge Activity: Resume usual activity Patient Instructions: Opioid Safety Activity Restrictions/Additional Instructions: Please follow a low calcium diet Follow up with primary care doctor and your oncologist in [place]. Discharge Attestations Time Spent in Discharge Care*: less than 30 min Quality Metrics Clinical Quality Measures [ No reported AMI, CVA or VTE this stay] Coding Level of Care Code Acute Code for Chg Fwd Diagnoses Dehydration E86.0 JAKE (acute kidney injury) N17.9 Hypercalcemia E83.52 Intraabdominal mass R19.00 Essential hypertension I10 History of AAA (abdominal aortic aneurysm) repair Z98.890
[2022-07-25] MEDS: zoledronic acid 4 MG in sodium chloride 0.9% (100 ml) 100 ML 420 MG IV (13:31)
[2022-07-25 13:37] LABS: Alanine Aminotransferase 22 U/L (0-33); Albumin Level 3.5 g/dL (3.5-5.2); Alkaline Phosphatase 85 U/L (35-105); Anion Gap 10.8 (5-19); Aspartate Amino Transferase 43 U/L (0-32); Blood Urea Nitrogen 13 mg/dL (8-23); Calcium 10.8 mg/dL (8.5-10.5); Carbon Dioxide 24 mmol/L (22-29); Chloride 109 mmol/L (98-107); Globulin 2.3 g/dL (1.3-4.6); Glucose 104 mg/dL (65-115); Osmolality Calculated 290 mOsm/kg (285-295); Potassium 3.8 mmol/L (3.5-5.1); Sodium 140 mmol/L (136-145); Total Bilirubin 0.5 mg/dL (0.15-1.2); Total Protein 5.8 g/dL (6.6-8.7)
[2022-07-25 15:51] LABS: Alanine Aminotransferase 23 U/L (0-33); Albumin Level 3.4 g/dL (3.5-5.2); Alkaline Phosphatase 83 U/L (35-105); Blood Urea Nitrogen 14 mg/dL (8-23); Calcium 11.1 mg/dL (8.5-10.5); Carbon Dioxide 25 mmol/L (22-29); Chloride 110 mmol/L (98-107); Globulin 2.5 g/dL (1.3-4.6); Glucose 125 mg/dL (65-115); Osmolality Calculated 296 mOsm/kg (285-295); Sodium 142 mmol/L (136-145); Total Bilirubin 0.4 mg/dL (0.15-1.2); Total Protein 5.9 g/dL (6.6-8.7)
[2022-07-25 15:54] LABS: Aspartate Amino Transferase 48 U/L (0-32)
--- NOTE | 2022-07-25 17:18 | PC.NURSE ---
Discussed discharge follow up appointments, new medication and diet with paitient and family member. Verbalized understanding.
[2022-07-26 12:22] LABS: Lymphoma Profile (BBPL) See Report
[2022-07-31 16:50] LABS: PTH Related Peptide (Protein) 6 pg/mL (11-20)
== END 2022-07-25 17:02 | disposition home or self-care (01) ==
LOC: ER 19:57 → MEDSURG 21:18
PROVIDERS: Radiology Neuroradiology; Admitting Provider Internal Medicine; Emergency Provider Emergency Medicine; PCP Nurse Practitioner Family; Visit Provider Internal Medicine
DX: E86.0 Dehydration (principal); N17.9 Acute kidney failure, unspecified; E83.52 Hypercalcemia; R19.00 Intra-abdominal and pelvic swelling, mass and lump, unspecified site; I10 Essential (primary) hypertension; Z98.890 Other specified postprocedural states; C85.90 Non-Hodgkin lymphoma, unspecified, unspecified site
CPT/HCPCS: 20206; 36415; 71045; 74177; 76942; 80053; 80503; 81003; 82306; 82310; 82330; 82542; 82607; 83605; 83690; 83735; 83970; 84100; 84145; 84443; 84484; 85025; 85610; 86140; 88184; 88185; 88309; 88312; 88313; 93005; 96365; 96372; 96374; 96375; 96376; 97116; 97161; 99285; C9113; G0378; J0630; J1650; J2250; J2405; J3010; J3489; J7030; Q9967